=== PATIENT | female | born 1930 | race Caucasian/White ===

== ENCOUNTER 2019-03-10 10:59 | Emergency (ER) | payer MEDICARE ==
--- NOTE | 2019-03-10 13:44 | CRLCT ---
DATE OF SERVICE: 03/10/19 CLINICAL DATA: unresponsive with vomiting UNENHANCED BRAIN CT: Multi slice acquisition through the brain without IV contrast was performed. Comparison is made to a prior exam dated 07/16/16. There is diffuse cerebral atrophy. There are extensive periventricular lucencies bilaterally, consistent with small vessel ischemic change. No masses or mass effect. No intracranial hemorrhage. No evidence of acute or subacute infarct. No osseous abnormalities. IMPRESSION: No acute intracranial abnormalities. [id number] [facility]
--- NOTE | 2019-03-10 14:41 | EDM.PDOC ---
ED HPI GENERAL MEDICAL PROBLEM - General Time Seen by Provider: 03/10/19 11:00 Source of Information: Reports: Patient History Limitations: Reports: No Limitations - History of Present Illness INITIAL COMMENTS - FREE TEXT/NARRATIVE: According to care center staff, patient was sitting on the chair in the common area, and was almost leaning to one side and sliding of the chair. Pt was then taken into her room to put her down for a nap. Pt vomiting and felt weak. Pt was brought into the emergency room, as she was weak. No seizure, No head injury. Pt does have severe dementia and hard to take history. No fever or chills. No cough. No chest pain or shortness of breath. Onset: Today Onset Date: 03/10/19 Onset Time: 10:30 Severity: Mild Associated Symptoms: Reports: Confusion, Shortness of Breath. 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: , Other (See Below) Other OUTSIDE MACHINIST HELPER History: cervical prolapse - Past Surgical History HEENT Surgical History: Reports: Cataract Surgery Female Surgical History: Reports: Section ED ROS GENERAL - Review of Systems Review Of Systems: Unable To Obtain (due to dementia) ED EXAM, GENERAL - Physical Exam Exam: See Below Exam Limited By: No Limitations General Appearance: Alert, WD/WN, No Apparent Distress Eye Exam: Bilateral Eye: EOMI, PERRL Ears: Normal External Exam, Normal Canal, Hearing Grossly Normal, Normal TMs Ear Exam: Bilateral Ear: TM normal Nose: Normal Inspection, Normal Mucosa, No Blood Throat/Mouth: Normal Inspection, Normal Lips, Normal Teeth, Normal Gums, Normal Oropharynx, Normal Voice, No Airway Compromise Head: Atraumatic, Normocephalic Neck: Normal Inspection, Supple, Non-Tender, Full Range of Motion Respiratory/Chest: No Respiratory Distress, Lungs Clear, Normal Breath Sounds, No Accessory Muscle Use, Chest Non-Tender Cardiovascular: Normal Peripheral Pulses, Regular Rate, Rhythm, No Edema, No Gallop, No JVD, No Murmur, No Rub GI/Abdominal: Normal Bowel Sounds, Soft, Non-Tender, No Organomegaly, No Distention, No Abnormal Bruit, No Mass Neurological: Alert, Oriented, CN II-XII Intact Course - Vital Signs Text/Narrative:: Pt is alert, she does have some confusion from her dementia. She is not sure of what happened. Her pupils are equal and reactive. RF DESIGN ENGINEER exam is normal. Considering her history. CBC and CMP was done which are normal. Also CT head was performed, which s negative for acute bleeding. Pt is able to stand up and walk with out support. HE is alert and oriented at this time. He episode of weakness with vomiting appears very nonspecific. Pt has been monitored in emergency room for 2 hrs with out any deterioration of the symptoms. Care center staff reassured. Pt discharge back to care center. - Orders/Labs/Meds Labs: Laboratory Tests 03/10/19 03/10/19 Range/Units 11:30 11:30 WBC 6.9 (4.0-11.0) K/uL RBC 4.47 (3.80-5.80) M/uL Hgb 13.5 (11.5-16.5) g/dL Hct 41.7 (37.0-47.0) % MCV 93 (76-96) fL MCH 30.2 (27.0-32.0) pg MCHC 32.4 (31.0-35.0) g/dL RDW 13.2 (11.0-16.0) % Plt Count 200 (150-500) K/uL MPV 10.0 (6.0-10.0) fL Neut % (Auto) 63.8 (45.0-70.0) % Lymph % (Auto) 20.4 (20.0-40.0) % [place] % (Auto) 11.6 H (3.0-10.0) % Eos % (Auto) 3.8 (1.0-5.0) % Baso % (Auto) 0.4 (0.0-0.5) % Neut # (Auto) 4.41 (2.00-7.50) K/uL Lymph # (Auto) 1.41 L (1.50-4.00) K/uL [place] # (Auto) 0.80 (0.20-0.80) K/uL Eos # (Auto) 0.26 (0.04-0.40) K/uL Baso # (Auto) 0.03 (0.02-0.10) K/uL Sodium 142 (136-145) mmol/L Potassium 4.0 (3.5-5.1) mmol/L Chloride 104 (98-107) mmol/L Carbon Dioxide 30.5 (21.0-32.0) mmol/L Anion Gap 11.5 (5.0-15.0) mmol/L BUN 16 (8-26) mg/dL Creatinine 0.99 (0.55-1.02) mg/dL Est Cr Clr Drug Dosing TNP Estimated GFR (MDRD) 53 L (>60) MLS/MIN BUN/Creatinine Ratio 16.2 (6-25) Glucose 97 (74-100) mg/dL Calcium 9.1 (8.5-10.1) mg/dL Total Bilirubin 0.5 (0.0-1.0) mg/dL AST 17 (15-37) U/L ALT 15 (12-78) U/L Alkaline Phosphatase 72 (46-116) U/L Total Protein 7.2 (6.4-8.2) g/dL Albumin 3.4 (3.4-5.0) g/dL Globulin 3.8 (2.2-4.2) g/dL Albumin/Globulin Ratio 0.9 (0.8-2.0) Departure - Departure Time of Disposition: 13:30 Disposition: DC/Tfer to [facility] Condition: Good Clinical Impression: Vomiting - Discharge Information *PRESCRIPTION DRUG MONITORING PROGRAM REVIEWED*: Not Applicable *COPY OF PRESCRIPTION DRUG MONITORING REPORT IN PATIENT CARLYLE: Not Applicable Referrals: PCP,None [Primary Care Provider] - Additional Instructions: Continue previous orders and Meds. - Problem List & Annotations (1) Vomiting SNOMED Code(s): 384212629 Code(s): R11.10 - VOMITING, UNSPECIFIED Status: Acute - Problem List Review Problem List Initiated/Reviewed/Updated: Yes - Assessment/Plan Assessment:: Vomiting with weakness Plan: Pt is alert, she does have some confusion from her dementia. She is not sure of what happened. Her pupils are equal and reactive. RF DESIGN ENGINEER exam is normal. Considering her history. CBC and CMP was done which are normal. Also CT head was performed, which s negative for acute bleeding. Pt is able to stand up and walk with out support. HE is alert and oriented at this time. He episode of weakness with vomiting appears very nonspecific. Pt has been monitored in emergency room for 2 hrs with out any deterioration of the symptoms. Care center staff reassured. Pt discharge back to care center.
== END 2019-03-10 12:47 ==
LOC: LB.ED 10:59
DX: R11.10 Vomiting, unspecified (principal); R53.1 Weakness; Z79.82 Long term (current) use of aspirin; Z79.899 Other long term (current) drug therapy
CPT/HCPCS: 36415; 70450; 80053; 85025; 99285-25

== ENCOUNTER 2019-05-26 16:08 | Emergency (ER) | payer MEDICARE ==
[2019-05-26] MEDS: Ondansetron 4 MG/2 ML SDV IVPUSH ONE ×2 (16:47→17:48)
[2019-05-26] MEDS ORDERED: Ondansetron 4 MG/2 ML SDV ONE ×2 (16:51→17:52)
[2019-05-26] MEDS ORDERED: Morphine 2 MG/ML Syringe ONE (17:20)
--- NOTE | 2019-05-26 17:20 | CT ---
DATE OF SERVICE: 05/26/2019 CLINICAL DATA: fall Unenhanced brain CT: Multislice acquisition through the brain without IV contrast was performed. Comparison is made to prior exam dated 02/18/2019. There is blood density material noted in multiple sulci in the right temporal, right parietal, and right occipital region consistent with acute post traumatic subarachnoid hemorrhage. No mass effect associated with these. There is diffuse cerebral atrophy. There are extensive periventricular lucencies bilaterally consistent with small vessel ischemic change. No other intracranial abnormalities. There is marked soft tissue swelling of the scalp adjacent left frontal bone and left zygoma with hyperdensity consistent with cephalohematoma. There is a minimally displaced fracture through the lateral wall of the left orbit. There is also a comminuted displaced fracture through the posterior lateral wall of the left maxillary sinus. There is a small amount of gas within the left orbit adjacent to the lateral rectus muscle. The globe appears intact. There is fluid and hematoma in the left maxillary sinus. There is also fluid in the sphenoid and left ethmoid sinuses. Impression: Abnormal exam. Post traumatic subarachnoid hemorrhage. Fractures as discussed above. The patient's physician was notified of the findings. [facility]
--- NOTE | 2019-05-26 17:25 | CT ---
DATE OF SERVICE: 05/26/2019 CLINICAL DATA: fall Cervical spine CT: Multislice axial acquisition was performed. Axial images and sagittal and coronal reformations are reviewed. There is diffuse osteopenia. The vertebral bodies are of average height and in good alignment. No acute fracture or dislocation. There is degenerative disc disease at multiple levels with disc space narrowing at multiple levels. There is facet joint hypertrophy throughout the cervical spine. There is fusion of the left C2-3 facet joint. The soft tissues are unremarkable. The visualized lung apices are clear. The comminuted fractures of the posterolateral wall of left maxillary sinus is again seen. There is also lucency through the zygomatic arch on the left suspicious of a nondisplaced fracture. [facility]
[2019-05-26] MEDS: Morphine 2 MG/ML Syringe IVPUSH ONE ×2 (17:30→17:50)
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
[2019-05-26 17:57] VITALS: BP 179/80; PULSE 78
== END 2019-05-26 18:39 ==
LOC: LB.ED 16:08
DX: S06.6X1A Traumatic subarachnoid hemorrhage with loss of consciousness of 30 minutes or less, initial encounter (principal); S02.82XB Fracture of other specified skull and facial bones, left side, initial encounter for open fracture; Z79.82 Long term (current) use of aspirin; Z79.899 Other long term (current) drug therapy; Z87.442 Personal history of urinary calculi; W10.9XXA Fall (on) (from) unspecified stairs and steps, initial encounter
CPT/HCPCS: 70450; 72125; 96374; 96375; 96376; 99284; J2270; J2405; 99285; A0425; A0429

== ENCOUNTER 2019-06-27 14:02 | Emergency (ER) | payer MEDICARE ==
[~2019-06-27 14:02] MED LIST: Cetirizine 10 MG Tab ONE
[2019-06-27 14:18] VITALS: BP 141/66; PULSE 62
--- NOTE | 2019-06-27 16:45 | ER ---
REASON FOR EMERGENCY ROOM VISIT: 1. Conjunctivitis. 2. Concern regarding desire to hurt herself. HISTORY OF PRESENT ILLNESS: This 88-year-old, the [place] [facility] resident was sent [place] by the [place] [facility] to evaluate the above-mentioned problems. Apparently about 6 weeks ago, she did have an episode where she fell sustaining some mild fractures about her orbit and some abrasions as well. She has been seen by an deputy director of finance and has a number of ophthalmologic diagnoses including presbyopia and so forth. She has been on erythromycin eye drops as well as oral ophthalmic ointment. For the past couple of days, she has had increased conjunctival injection, although she does not complain of any significant itching, burning, or pain in either eye. According to her daughter, she has had surgery for cataract in the past. In addition to the above, according to nursing staff, she had verbalized desire to possibly hurt herself. She is a patient who is seen regularly by Dr. Self. I visited with the daughter because the patient has a history of dementia. She did say that the patient has been significantly confused and forgetful as of late, consistent with her dementia. She also has been on Lexapro for quite some time. This and talking to the patient, she states, "I don't want to hurt myself. I would rather be anyone else anywhere else, but here." She denies any physical complaints of pain or discomfort. She feels well otherwise. PAST MEDICAL HISTORY: 1. Dementia. 2. History of renal calculus. 3. Urinary incontinence. 4. . 5. Cataract surgery. 6. History of fall 6 weeks ago as described above. 7. History of subarachnoid hematoma. 8. Orbital floor fracture with lateral orbital wall fracture (see above). ALLERGIES: NONE. MEDICATIONS: Medications reviewed. Please see EMR. They include oxybutynin, Lexapro, donepezil, vitamin D3, aspirin, erythromycin ophthalmic ointment. REVIEW OF SYSTEMS: Pertinent positives and negatives as listed in the HPI. She feels well otherwise. PHYSICAL EXAMINATION: GENERAL: She is smiling. Her mood appears appropriate. She certainly does not appear to be in any acute distress. She is cooperative and tries to answer questions cogently. She is oriented x2. HEENT: Head is normocephalic. Eyes, she has bilateral subconjunctival injection with some evidence of subconjunctival hemorrhage. There is a small amount of exudate on her lower eyelid on the left side. Oropharynx is normal. NECK: Supple. CHEST: Clear to auscultation. CARDIAC: Regular rate without murmur. IMPRESSION: 1. Conjunctivitis, possibly due to allergies. Why she is on the antibiotic ointment is unclear. The nursing staff does not seem to be able to know when I asked them over the phone. She does state that it is itching at times. 2. Dementia with episodes of situational depression. PLAN: I had a nice visit with the patient in the presence of her daughter. I do not feel that she is at any risk of harming herself. She certainly denies any intention to do this. I think she is simply going through a period of situational depression and feeling blue, and is not really happy about being in the [place] [facility]. With regard to her eyes, I am going to have her follow up with Dr. Self on Saturday. I did start her on some Zyrtec 10 mg p.o. daily with hopes that might help with some of the conjunctivitis. She is already on antibiotic eye drops and ointment. All questions were answered. They understand and agree. ELLIOT/ANALY /[id number]
== END 2019-06-27 15:10 ==
LOC: LB.ED 14:02
DX: H10.9 Unspecified conjunctivitis (principal); F03.90 Unspecified dementia, unspecified severity, without behavioral disturbance, psychotic disturbance, mood disturbance, and anxiety; F32.9 Major depressive disorder, single episode, unspecified; Z98.49 Cataract extraction status, unspecified eye
CPT/HCPCS: 99283; 99285; A9270-GY

== ENCOUNTER 2019-09-14 13:24 | Emergency (ER) | payer MEDICARE ==
[2019-09-14 13:47] VITALS: BP 163/74; PULSE 66
--- NOTE | 2019-09-14 19:43 | EDM.PDOC ---
ED HPI GENERAL MEDICAL PROBLEM - General Chief Complaint: General Stated Complaint: FALL LEFT WRIST INJURY Time Seen by Provider: 09/14/19 13:30 Source of Information: Reports: Patient History Limitations: Reports: No Limitations - History of Present Illness INITIAL COMMENTS - FREE TEXT/NARRATIVE: This is a 89yo F brought to the ER for a recent fall and pain of the left wrist and right hip. She denies any other issues. No abrasions or bruises noted. Onset: Sudden Severity: Mild Improves with: Reports: None Worsens with: Reports: None - Related Data Allergies Allergy/AdvReac Type Severity Reaction Status Date / Time No Known Allergies Allergy Verified 05/26/19 16:47 Home Meds: Home Meds Aspirin 81 mg PO DAILY 02/08/16 [History] Cholecalciferol (Vitamin D3) [Vitamin D3] 2,000 unit PO DAILY 05/26/19 [History] Donepezil HCl 5 mg PO DAILY 05/26/19 [History] Escitalopram [Lexapro] 20 mg PO DAILY 05/26/19 [History] Oxybutynin [Oxybutynin ER] 5 mg PO DAILY 05/26/19 [History] Past Medical History HEENT History: Reports: Cataract, Impaired Vision Genitourinary History: Reports: Renal Calculus, Urinary Incontinence 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 ED EXAM, GENERAL - Physical Exam Exam: See Below Exam Limited By: Other (dementia) General Appearance: WD/WN, No Apparent Distress Eye Exam: Bilateral Eye: EOMI, PERRL Ears: Normal External Exam Nose: Normal Inspection Throat/Mouth: Normal Inspection Head: Atraumatic, Normocephalic Neck: Normal Inspection Respiratory/Chest: No Respiratory Distress, Lungs Clear, Normal Breath Sounds Cardiovascular: Normal Peripheral Pulses, Regular Rate, Rhythm Peripheral Pulses: 2+: Dorsalis Pedis (L), Dorsalis Pedis (R) GI/Abdominal: Normal Bowel Sounds Back Exam: Normal Inspection Extremities: Normal Inspection, Other (left wrist pain) Neurological: Normal Gait, Normal Reflexes, No Motor/Sensory Deficits Psychiatric: Normal Affect, Normal Mood Skin Exam: Warm, Dry, Intact Course - Vital Signs Last Recorded V/S: Last Vital Signs Temp 36.3 C 09/14/19 13:30 Pulse 66 09/14/19 13:30 Resp 16 09/14/19 13:30 BP 163/74 H 09/14/19 13:30 Pulse Ox 94 L 09/14/19 13:30 Departure - Departure Time of Disposition: 15:00 Disposition: DC/Tfer to [place] [id number] Condition: Fair Clinical Impression: Wrist pain, left Pubic bone fracture Qualifiers: Encounter type: initial encounter Sublocation of pubis: other portion of pubis Fracture type: closed Laterality: right Qualified Code(s): S32.591A - Other specified fracture of right pubis, initial encounter for closed fracture - Discharge Information Referrals: PCP,None [Primary Care Provider] - Forms: ED Department Discharge Care Plan Goals: Take it easy today. Rest and relax as much as possible. Return to hospital or clinic with any questions or concerns that you may have. - Problem List & Annotations (1) Wrist pain, left SNOMED Code(s): 09622430 Code(s): M25.532 - PAIN IN LEFT WRIST Status: Acute Priority: High (2) Pubic bone fracture SNOMED Code(s): 76424978 Code(s): S32.509A - UNSP FRACTURE OF UNSP PUBIS, INIT ENCNTR FOR CLOSED FRACTURE Status: Acute Priority: High Qualifiers: Encounter type: initial encounter Sublocation of pubis: other portion of pubis Fracture type: closed Laterality: right Qualified Code(s): S32.591A - Other specified fracture of right pubis, initial encounter for closed fracture - Problem List Review Problem List Initiated/Reviewed/Updated: Yes - Assessment/Plan Plan: Counseled on supportive/conservative care and pain management. Close monitoring and f/u in clinic as directed.
--- NOTE | 2019-09-15 00:04 | CR ---
DATE OF SERVICE: 09/14/2019 CLINICAL DATA: Fall. LEFT WRIST: Comparison made to a prior exam dated 08/11/2019. No change in alignment or position on the distal radial fracture. The un- united ulnar styloid fracture fragment is unchanged. No new abnormalities. [id number] [facility]
--- NOTE | 2019-09-15 00:11 | CR ---
DATE OF SERVICE: 09/14/2019 CLINICAL DATA: Fall. PELVIS AND RIGHT HIP: There is diffuse osteopenia. No hip fracture identified. There is a lucency through the superior pubis ramus medially consistent with a nondisplaced fracture. There is also a fracture through the pubic bone on the right. No other acute abnormalities. [id number] [facility]
== END 2019-09-14 14:55 ==
LOC: LB.ED 13:24
DX: S32.591A Other specified fracture of right pubis, initial encounter for closed fracture (principal); M25.532 Pain in left wrist; Z79.82 Long term (current) use of aspirin; F41.9 Anxiety disorder, unspecified; F32.9 Major depressive disorder, single episode, unspecified; Z79.899 Other long term (current) drug therapy; W19.XXXA Unspecified fall, initial encounter; Y92.89 Other specified places as the place of occurrence of the external cause
CPT/HCPCS: 73100-LT; 73501-RT; 99283; 99284-25